=== PATIENT | male | born 1985 | race Caucasian/White ===

== ENCOUNTER 2022-08-05 11:59 | Day surgery (SDC) | payer OTHER ==
[2022-08-05 12:23] LABS: BASOPHILS % (AUTO) 0.1 %; EOSINOPHILS # (AUTO) 0.1 10^3/uL (0.0-0.7); HCT - HEMATOCRIT 47.6 % (42.0-52.0); HGB - HEMOGLOBIN 15.7 g/dL (14.0-18.0); LYMPHOCYTES # (AUTO) 1.3 10^3/uL (1.5-3.5); LYMPHOCYTES % (AUTO) 12.9 %; MEAN CORPUSCULAR VOLUME 90.8 fL (80.0-94.0); MEAN PLATELET VOLUME 9.7 fL (7.4-11.4); MONOCYTES # (AUTO) 0.5 10^3/uL (0.0-1.0); MONOCYTES % (AUTO) 5.4 %; NEUTROPHILS # (AUTO) 8.1 10^3/uL (1.5-6.6); NEUTROPHILS % (AUTO) 80.2 %; PLT - PLATELET COUNT 210 10^3/uL (130-450); RED BLOOD COUNT 5.24 10^6/uL (4.70-6.10); RED CELL DISTRIBUTION WIDTH 12.5 % (12.0-15.0); WHITE BLOOD COUNT 10.1 x10^3/uL (4.8-10.8)
--- NOTE | 2022-08-05 12:35 | ED Physician Documentation ---
History of Present Illness - Stated complaint Stated Complaint: LOWER ABD PX - Chief complaint Chief Complaint: Abd Pain - Additonal information Additional information: 37-year-old male presents emergency department for evaluation of acute right lower quadrant abdominal pain. Reports he woke up yesterday morning and felt that his entire abdomen was painful but over the course the morning it settled within his right lower quadrant. No fevers or vomiting but he has had some nausea. He is denying any urinary symptoms or hematuria. No history of similar. This patient does report that he has chronic lower scrotal and testicular pain. 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 He has no pertinent past abdominal surgical history. Takes no prescribed medications. He last ate about 1 hour ago around 11 am and it included granola, mac & cheese and grapes. Review of Systems Constitutional: denies: Fever, Chills Cardiac: reports: Reviewed and negative Respiratory: reports: Reviewed and negative GI: reports: Abdominal Pain. denies: Nausea, Vomiting : reports: Reviewed and negative Skin: reports: Reviewed and negative PD PAST MEDICAL HISTORY - Past Surgical History Past Surgical History: No - Present Medications Home Medications: Ambulatory Orders Medication Instructions Recorded Confirmed No Known Home Medications 05/13/16 08/05/22 - Allergies Allergies/Adverse Reactions: Allergies Allergy/AdvReac Type Severity Reaction Status Date / Time No Known Drug Allergies Allergy Verified 08/05/22 12:08 - Social History Does the pt smoke?: No Smoking Status: Never smoker - Immunizations Immunizations are current?: Yes PD ED PE NORMAL - General General: Alert and oriented X 3, Well developed/nourished - HEENT HEENT: Atraumatic, Moist mucous membranes - Neck Neck: Supple, no meningeal sign, No adenopathy - Cardiac Cardiac: RRR, No murmur - Respiratory Respiratory: No respiratory distress, Clear bilaterally - Abdomen Abdomen: Normal bowel sounds, Soft. No: Non tender (Focal tenderness right lower quadrant. Equivocal McBurney's) - Back Back: No CVA TTP, No spinal TTP - Derm Derm: Normal color, Warm and dry - Neuro Neuro: Alert and oriented X 3 Eye Opening: Spontaneous Motor: Obeys Commands Verbal: Oriented GCS Score: 15 Results - Vitals Vitals: Vital Signs - 24 hr 08/05/22 08/05/22 12:05 12:08 Temperature 37.1 C 37.1 C Heart Rate 83 83 Respiratory 14 14 Rate Blood Pressure 149/83 H 149/83 H O2 Saturation 99 99 Oxygen O2 Source Room air - Labs Labs: Laboratory Tests 08/05/22 08/05/22 08/05/22 12:17 12:17 12:18 WBC 10.1 RBC 5.24 Hgb 15.7 Hct 47.6 MCV 90.8 MCH 30.0 MCHC 33.0 RDW 12.5 Plt Count 210 MPV 9.7 Neut # (Auto) 8.1 H Lymph # (Auto) 1.3 L [place] # (Auto) 0.5 Eos # (Auto) 0.1 Baso # (Auto) 0.0 Absolute Nucleated RBC 0.00 Nucleated RBC % 0.0 Sodium 138 Potassium 4.1 Chloride 98 L Carbon Dioxide 26 Anion Gap 14.0 H BUN 11 Creatinine 0.8 Estimated GFR (MDRD) 110 Glucose 114 H Calcium 9.8 Total Bilirubin 2.5 H AST 19 ALT 26 Alkaline Phosphatase 42 Total Protein 7.7 Albumin 4.4 Globulin 3.3 Albumin/Globulin Ratio 1.3 Lipase 33 Urine Color YELLOW Urine Clarity CLEAR Urine pH 7.5 Ur Specific [place] 1.015 Urine Protein NEGATIVE Urine Glucose (UA) NEGATIVE Urine Ketones NEGATIVE Urine Occult Blood NEGATIVE Urine Nitrite NEGATIVE Urine Bilirubin NEGATIVE Urine Urobilinogen 0.2 (NORMAL) Ur Leukocyte Esterase NEGATIVE Ur Microscopic Review NOT INDICATED Urine Culture Comments NOT INDICATED - Rads (name of study) CT abd w Radiology: Final report received (9 mm appendicitis with surrounding inflammation with no evidence of perforation or abscess) PD Medical Decision Making - ED course Complexity details: reviewed results, re-evaluated patient, considered differential, d/w patient, d/w cardiology clinical consultant ED course: 37-year-old male presents emergency department for evaluation of 2 days right lower quadrant abdominal pain. No fevers or vomiting. Seen at a local walk-in clinic and advised to come to the ER. Here in the emergency department he does have an equivocal McBurney's on exam. I did obtain a CBC and electrolytes and per my interpretation no acute worrisome findings. Specifically no leukocytosis. He does have an elevated total bilirubin but no pain in the right upper quadrant. Given location of the pain the differential included ureter/renal colic, acute appendicitis and bowel obstruction. CT scan was completed and it does show a 9 mm appendicitis with surrounding inflammation but no evidence of perforation or abscess. I did speak with Dr. Sanchez at just after 2 PM and notified her of the positive CT results. She was told that patient last ate around 11 AM. I had initially ordered Zosyn but she stated that she would give antibiotics just prior to him going into surgery instead. IV fluids have been ordered. COVID-19 is pending. I have discussed the CT imaging findings with the patient and notified him of the plan to proceed with surgery. He is in agreement. At this time he remains clinically stable. Planned operative procedure likely later this evening after the 5:00 hour. further care will be dictated by the team at that time Departure - Departure Disposition: ED Transfer to [facility] Clinical Impression: Appendicitis Qualifiers: Appendicitis type: acute appendicitis Acute appendicitis type: with localized peritonitis Appendicitis gangrene presence: unspecified whether gangrene present Appendicitis perforation presence: without perforation Appendicitis abscess presence: without abscess Qualified Code(s): K35.30 - Acute appendicitis with localized peritonitis, without perforation or gangrene
[2022-08-05 12:37] LABS: ALBUMIN 4.4 g/dL (3.2-5.5); ALBUMIN/GLOBULIN RATIO 1.3 (1.0-2.2); BILIRUBIN,TOTAL 2.5 mg/dL (0.2-1.0); CALCIUM 9.8 mg/dL (8.5-10.3); CREATININE 0.8 mg/dL (0.6-1.2); POTASSIUM 4.1 mmol/L (3.5-5.0); TOTAL PROTEIN 7.7 g/dL (6.7-8.2)
[2022-08-05] MEDS ORDERED: iohexoL-300 100 ML VIAL ONE (12:53)
[2022-08-05 13:03] LABS: BILIRUBIN,URINE NEGATIVE (NEGATIVE); GLUCOSE, URINE (UA) NEGATIVE (NEGATIVE); KETONES,URINE (UA) NEGATIVE (NEGATIVE); LEUKOCYTE ESTERASE, URINE NEGATIVE (NEGATIVE); NITRITE,URINE NEGATIVE (NEGATIVE); OCCULT BLOOD,URINE NEGATIVE (NEGATIVE); PH,URINE 7.5 PH (5.0-7.5); PROTEIN,URINE NEGATIVE (NEGATIVE); UROBILINOGEN,URINE 0.2 (NORMAL) E.U./dL (NORMAL)
[2022-08-05 13:06] LABS: CLARITY,URINE CLEAR (CLEAR)
[2022-08-05] MEDS ORDERED: iohexoL-300 100 ML VIAL IVP ONE (13:19)
[2022-08-05] MEDS ORDERED: PIPERACILLIN/TAZOBACTAM 3.375 GM in SODIUM CHLORIDE 0.9% MINIBAG 100 ML IV STA (14:06)
[2022-08-05] MEDS ORDERED: SODIUM CHLORIDE 0.9% 1,000 ML IV STA (14:07)
--- NOTE | 2022-08-05 14:08 | CT Report ---
PROCEDURE: ABDOMEN/PELVIS W INDICATIONS: focal RLQ abd pain CONTRAST: 100ml Omnipaque 300 TECHNIQUE: After the administration of contrast, 5 mm thick sections acquired from the diaphragms to the sym physis. 5 mm thick coronal and sagittal reformats were acquired. For radiation dose reduction, the following was used: automated exposure control, adjustment of mA and/or kV according to patient size . COMPARISON: None. FINDINGS: Image quality: Excellent. ABDOMEN: Lung bases: Lung bases are clear. Heart size is normal. Solid organs: Liver and spleen are normal in size and enhancement. Gallbladder is normal. Biliary system is non dilated. Pancreas enhances normally. No adrenal nodules. Kidneys demonstrate normal size and enhancement, without hydronephrosis. Peritoneum and bowel: Bowel loops demonstrate normal wall thickness and caliber. No free fluid or a ir. The appendix measures 9 mm with surrounding inflammation consistent with Nodes and vessels: No retroperitoneal or mesenteric adenopathy by size criteria. Aorta and inferior vena cava are normal in size. Miscellaneous: No ventral hernias. PELVIS: Genitourinary: Bladder wall thickness is normal. Miscellaneous: No inguinal hernias or adenopathy. Bones: No suspicious bony lesions. No vertebral body compression fractures. IMPRESSION: 9 mm appendicitis with surrounding inflammation with no evidence of perforation or absce ss. Reviewed by: Mickey Clemons on 08/05/2022 2:07 PM PST Approved by: Mickey Clemons on 08/05/2022 2:07 PM PST Station ID: [id number]
[2022-08-05] MEDS ORDERED: LIDOCAINE MPF 2%-EPI 1:200000 20 ML VIAL ONE (15:32)
[2022-08-05] MEDS ORDERED: BUPIVACAINE 0.25% PF 30 ML VIAL ONE (15:32)
[2022-08-05] MEDS ORDERED: MORPHINE 2 MG/ML CARPUJECT IVP PRN ×2 (16:29→17:27)
[2022-08-05] MEDS ORDERED: ACETAMINOPHEN 325 MG TABLET PO STA (16:29)
[2022-08-05] MEDS ORDERED: ONDANSETRON 4 MG/2 ML VIAL IVP PRN ×3 (16:29→18:17)
[2022-08-05] MEDS ORDERED: CELECOXIB 100 MG CAPSULE PO SCH (16:33)
[2022-08-05] MEDS ORDERED: SUCCINYLCHOLINE 200 MG/10 ML VIAL ONE (16:34)
[2022-08-05] MEDS ORDERED: fentaNYL 100 MCG/2 ML VIAL ONE ×2 (16:35→17:19)
[2022-08-05] MEDS ORDERED: ROCURONIUM 50 MG/5 ML VIAL ONE (16:35)
[2022-08-05] MEDS ORDERED: PROPOFOL 200 MG/20 ML VIAL IVP ONE (16:35)
[2022-08-05] MEDS ORDERED: MIDAZOLAM 2 MG/2 ML VIAL ONE (16:35)
--- NOTE | 2022-08-05 16:37 | SURGERY HX AND PHYSICAL(T) ---
Surgical History & Physical - Chief Complaint/HPI Chief Complaint: abdominal pain History of Present Illness: This is a very pleasant 37-year-old gentleman who presents with acute onset abdominal pain. He first noted the pain yesterday morning, and at that time it was diffuse in nature and uncomfortable. Throughout the day, it migrated to the patient's right lower quadrant and became more intense. He endorses some associated nausea but denies vomiting, constipation, or diarrhea. He had a normal bowel movement yesterday. He denies any urinary symptoms or history of similar pain in the past. Last p.o. intake was a meal at around 11 AM today.. - PMH/PSH/Social Hx Does the pt have a hx of MRSA?: No Smoking Status: Never smoker - Family Hx Family Hx: Unremarkable - Home Meds and Allergies Allergies/Adverse Reactions: Allergies Allergy/AdvReac Type Severity Reaction Status Date / Time No Known Drug Allergies Allergy Verified 08/05/22 12:08 - Review of Systems Constitutional: Other (A complete 10 point review of symptoms is otherwise negative except for that noted in HPI and PMH.) - Vital Signs Heart Rate: 71 Blood Pressure: 138/88 Temperature: 37.1 C Respiratory Rate: 17 O2 Saturation: 98 Weight (kg): 99.79 kg Height: 1.73 m - Physical Exam General Appearance: positive: No acute distress, Alert Eyes Bilatera: positive: Normal inspection, PERRL, EOMI ENT: positive: ENT inspection nml, No signs of dehydration Neck: positive: Trachea midline Respiratory: positive: Chest non-tender, No respiratory distress Cardiovascular: positive: Regular rate & rhythm Peripheral Pulses: positive: 2+ Abdomen: positive: No distention, Tenderness (Right lower quadrant). negative: Guarding, Rebound Back: positive: Nml inspection Skin: positive: Color nml, Skin rash Extremities: positive: Non-tender, Full ROM Neurologic/Psychiatric: positive: Oriented x3 - Patient Review Patient Review: Problems were reviewed with the patient during this visit. Med ications were reviewed with the patient during this visit. Allergies were reviewed this patient during this visit. Pertinent Tests Reviewed: All pertitent test for this patient were reviewed. - Assessment & Plan Assessment and Plan: This is a 37-year-old gentleman with: 1. Acute appendicitis The patient's history, laboratory studies, physical exam, and imaging are consistent with this diagnosis. -I personally reviewed the images and report from the patient's CT scan of the abdomen and pelvis from today. It is consistent with acute appendicitis. There are no signs of perforation. -I discussed the natural history of appendicitis with the patient. We also discussed the risks, benefits, and alternatives of laparoscopic appendectomy, including the alternative of managing appendicitis with antibiotics alone. We discussed surgical risks including bleeding, infection, and damage to surrounding structures. We also discussed the intraoperative and postoperative plan including the possible need for drain placement and possibility of abscess formation after the procedure which is due to the disease process, not necessarily a complication of the surgery. The patient voiced understanding, his questions were answered, and he wished to proceed with surgery at this time. A consent was signed with the patient in the emergency department. - Patient will remain NPO for a total of 6 hours before surgery -ERAS medications and preoperative antibiotics have been ordered -I anticipate likely discharge this evening. -He will need to follow-up with me in clinic in 2 weeks.
[2022-08-05] MEDS ORDERED: metroNIDAZOLE 500 MG/100 ML 500 MG/100 ML BAG IV SCH (17:00)
[2022-08-05] MEDS ORDERED: acetaZOLAMIDE 250 MG TABLET PO SCH (17:00)
[2022-08-05] MEDS ORDERED: SODIUM CHLORIDE 0.9% 1,000 ML IV SCH (17:00)
[2022-08-05] MEDS ORDERED: ceFAZolin 1 GM VIAL IVP SCH (17:00)
[2022-08-05] MEDS ORDERED: DEXAMETHASONE 4 MG/ML VIAL ONE (17:07)
[2022-08-05] MEDS ORDERED: ONDANSETRON 4 MG/2 ML VIAL ONE (17:07)
[2022-08-05] MEDS ORDERED: CEFAZOLIN 2G/50ML 0.9% NS 2 GM/50 ML BAG IV ONE (17:08)
[2022-08-05] MEDS ORDERED: LIDOCAINE MPF 2%-EPI 1:200000 20 ML VIAL SUBQ ONE (17:22)
[2022-08-05] MEDS ORDERED: BUPIVACAINE 0.25% PF 30 ML VIAL SUBQ ONE (17:22)
[2022-08-05] MEDS ORDERED: fentaNYL 100 MCG/2 ML VIAL IVP PRN (17:27)
[2022-08-05] MEDS ORDERED: ATROPINE ABBOJECT 1 MG/10 ML SYRINGE IVP PRN (17:27)
[2022-08-05] MEDS ORDERED: NALOXONE 0.4 MG/ML VIAL IVP PRN (17:27)
[2022-08-05] MEDS ORDERED: HYDROmorphone 0.5 MG/0.5 ML SYRINGE IVP PRN ×2 (17:27→18:17)
--- NOTE | 2022-08-05 17:27 | ANESTHESIA ---
Pre-Anesthesia VS, & Labs - Diagnosis Acute appendicitis - Procedure lap appy Vital Signs: Temp Pulse Resp BP Pulse Ox O2 Flow Rate 37.1 C 71 17 138/88 H 98 08/05/22 16:45 08/05/22 16:45 08/05/22 16:45 08/05/22 16:45 08/05/22 16:45 Height: 5 ft 8 in Weight (kg): 99.79 kg Body Mass Index: 33.4 BMI Classification: Obese - NPO Other (mac and cheese at 11am) - Lab Results Current Lab Results: Laboratory Tests 08/05/22 12:17: Sodium 138, Potassium 4.1, Chloride 98 L, Carbon Dioxide 26, Anion Gap 14.0 H, BUN 11, Creatinine 0.8, Estimated GFR (MDRD) 110, Glucose 114 H, Calcium 9.8, Total Bilirubin 2.5 H, AST 19, ALT 26, Alkaline Phosphatase 42, Total Protein 7.7, Albumin 4.4, Globulin 3.3, Albumin/Globulin Ratio 1.3, Lipase 33 08/05/22 12:17: WBC 10.1, RBC 5.24, Hgb 15.7, Hct 47.6, MCV 90.8, MCH 30.0, MCHC 33.0, RDW 12.5, Plt Count 210, MPV 9.7, Neut # (Auto) 8.1 H, Lymph # (Auto) 1.3 L, [place] # (Auto) 0.5, Eos # (Auto) 0.1, Baso # (Auto) 0.0, Absolute Nucleated RBC 0.00, Nucleated RBC % 0.0 Lab results reviewed: Yes Fish Bones: 08/05/22 12:17 08/05/22 12:17 Home Medications and Allergies Active Medications Acetaminophen (Acetaminophen 325 Mg Tablet) 1,000 mg PO ONCE STA Stop: 08/05/22 16:30 Acetazolamide (Acetazolamide 250 Mg Tablet) 250 mg PO ONCE JOANNE Cefazolin Sodium (Cefazolin 1 Gm Vial) 2 gm IVP ONCE JOANNE Celecoxib (Celecoxib 100 Mg Capsule) 200 mg PO ONCE JOANNE Sodium Chloride (Normal Saline 0.9%) 1,000 mls @ 125 mls/hr IV .Q8H JOANNE Metronidazole (Flagyl 500 Mg/100 Ml) 500 mg in 100 mls @ 100 mls/hr IV ONCE JOANNE Morphine Sulfate (Morphine 2 Mg/Ml Carpuject) 4 mg IVP Q2HR PRN PRN Reason: PAIN Ondansetron HCl (Ondansetron 4 Mg/2 Ml Vial) 4 mg IVP Q6HR PRN PRN Reason: Nausea / Vomiting Allergies/Adverse Reactions: Allergies Allergy/AdvReac Type Severity Reaction Status Date / Time No Known Drug Allergies Allergy Verified 08/05/22 12:08 Anes History & Medical History - Anesthetic History Anesthesia Complications: reports: No previous complications - Medical History Cardiovascular: reports: None Pulmonary: reports: None Gastrointestinal: reports: GERD (1-2 times per week. usually diet related) Urinary: reports: None Neuro: reports: None Musculoskeletal: reports: None Endocrine/Autoimmune: reports: None Blood Disorders: reports: None Skin: reports: None Smoking Status: Never smoker Psychosocial: reports: Alcohol (2-3 whiskey drinks per day) History of Cancer?: No - Surgical History Orthopedic: reports: ACL reconstruction (bilateral) Exam General: Alert, Oriented x3, Cooperative, No acute distress Dental: WNL Mouth Openin Fingerbreadth Neck Mobility: Normal Mallampati classification: I Thyromental Distance: 4-6 cm Mental/Cognitive Status: Alert/Oriented X3, Normal for patient Plan Anesthesia Type: General Consent for Procedure(s) Verified and Reviewed: Yes Code Status: Attempt Resuscitation ASA classification: 2-Mild systemic disease Is this case an emergency?: Yes
[2022-08-05] MEDS ORDERED: HYDROmorphone 1 MG/ML CARPUJECT ONE (17:56)
[2022-08-05] MEDS ORDERED: KETOROLAC 30 MG/ML VIAL ONE (17:57)
[2022-08-05] MEDS ORDERED: ACETAMINOPHEN 1,000 MG/100 ML 1,000 MG/100 ML BAG IV ONE (17:58)
[2022-08-05] MEDS ORDERED: LACTATED RINGERS 1,000 ML IV SCH (18:00)
--- NOTE | 2022-08-05 18:12 | OPERATIVE REPORT ---
Operative Report - General Procedure Date: 08/05/22 Planned Procedure: Laparoscopic appendectomy Pre-Op Diagnosis: Acute appendicitis Procedure Performed: Laparoscopic appendectomy Post Op Diagnosis: Acute appendicitis, Nonperforated - Procedure Note Primary Surgeon: Dr. America Woo Anesthesia Provider: Celeste Sage CRNA Anesthesia Technique: General ET tube, Local Pathology: Appendix and contents Estimated Blood Loss (mL): 20 Urine Output (mL): 225 Indications: Patient presented with abdominal pain of 36 hours duration. Pain was initially diffuse and migrated to the patient's right lower quadrant. His CT scan, physical exam, laboratory studies, and history are consistent with acute appendicitis. Preoperatively I discussed the natural history of appendicitis as well as options including antibiotics alone and surgery. We discussed the risks, benefits, and alternatives of laparoscopic appendectomy including bleeding, infection, and damage to surrounding structures. The patient voiced understanding, his questions were answered, and he wished to proceed with surgery. Consent was signed by the patient in the emergency department prior to surgery. Findings: 1. Acute, nonperforated appendicitis Complications: None - Other Other Information/Narrative: The patient was brought to the operative suite and placed in the supine position. General endotrachealanesthesia was induced. A Mortensen catheter was placed. Preoperative antibiotics were given. A preop surgical timeout was performed. Local anesthetic was injected into the skin and subcutaneous tissues just superior to the umbilicus. An 11 blade scalpel was used to make a 5 mm transverse skin incision in this location. Next, a hemostat was used to spread the tissues down to the level of the fascia and a Eric clamp was used to grasp and elevate the umbilical stalk. A Varess needle was used to gain access to the peritoneal space. Low flow insufflation revealed low pressures and then high flow insufflation was undertaken to 15 mmHg. Next, the Varess needle was removed and a 5 mm laparoscopic port was inserted in this location. Through this port, a 5 mm 30 degree laparoscope was inserted. On inspection of the abdomen no injury was caused on entry. Next, the patient was placed in Trendelenburg and rotated slightly to the left. 2 more ports were inserted. A 5 mm port was inserted in the suprapubic region, and a 12 mm port was inserted in the left lower quadrant. Both ports were placed by first anesthetizing the skin and subcutaneous tissues with local anesthetic, then by making an appropriate length incision with an 11 blade scalpel, and finally by placing the port under direct laparoscopic vision. Once the ports were in place, 2 atraumatic graspers were used to identify the area of concern. The appendix and cecum were densely adherent to the right abdominal sidewall. There was marked inflammation. Blunt and sharp dissection with laparoscopic scissors was used to follow the peritoneal reflection and free the appendix and cecum enough to perform an appendectomy safely. Great care was taken only to cut through those tissues that I could easily see through. A window was made in the mesoappendix at the base of the appendix using a [place] grasper. Then, the base of the appendix was divided with a laparoscopic 45 mm stapler, using a blue load.Great care was taken to ensure that only the base of the appendix was within the jaws of the stapler and then it was fired. Next, a white load was used to come across the mesoappendix. The staple lines were inspected and noted to be hemostatic. Next, the appendix was placed in an Endo Catch bag and removed through the left lower quadrant port. The left lower quadrant port was then reinserted. Again, the staple lines were inspected and noted to be hemostatic. A small amount of fluid was suctioned from the right paracolic gutter. There was no sign of perforation or purulent fluid within the abdomen. Next, a laparoscopic fascial closure device was used to place a single, interrupted 0 Vicryl suture at the left lower quadrant port. This reapproximated the fascia well. The remaining ports were removed under direct laparoscopic vision and the abdomen was deflated. Next, the skin edges were reapproximated with 4-0 Monocryl in an interrupted subcuticular fashion. A sterile dressing of skin glue was placed. The Mortensen catheter was removed at the end of the case. The patient was extubated in the operating room and transferred to the recovery room in stable condition. There were no complications.
[2022-08-05] MEDS ORDERED: LACTATED RINGERS 1,000 ML IV ONE (18:16)
[2022-08-05] MEDS ORDERED: HYDROcod/ACETAM 5/325 MG TABLET PO PRN (18:17)
[2022-08-05] MEDS ORDERED: oxyCODONE/ACET 5/325 Prepack 4 PO STA (18:21)
--- NOTE | 2022-08-05 18:32 | ANESTHESIA POST OP EVALUATION ---
Anesthesia Post Eval - Post Anesthesia Eval Vitals: Last Vital Signs Temp 37.5 C 08/05/22 18:27 Pulse 81 08/05/22 18:27 Resp 20 08/05/22 18:27 BP 120/84 H 08/05/22 18:27 Pulse Ox 100 08/05/22 18:27 O2 Flow Rate CV Function Including HR & BP: Stable Pain Control: Satisfactory Nausea & Vomiting: Negative Mental Status: Baseline Respiratory Status: Airway Patent Hydration Status: Satisfactory Anesthesia Complications: None
[2022-08-05 20:40] VITALS: BP 146/92
== END 2022-08-05 20:45 | disposition home or self-care (01) ==
LOC: ED 11:59 → SDS 16:15 → ICU 19:05 → SDS 20:45
PROVIDERS: ATTEND Surgery
PROC: 0DTJ4ZZ Resection of Appendix, Percutaneous Endoscopic Approach (ICD-10-PCS; principal; 2022-08-05 17:00)
DX: K35.30 Acute appendicitis with localized peritonitis, without perforation or gangrene (principal); Z20.822 Contact with and (suspected) exposure to COVID-19; E66.9 Obesity, unspecified; Z68.33 Body mass index [BMI] 33.0-33.9, adult
CPT/HCPCS: 36415; 44970; 74177; 80053; 81003; 83690; 85025; 87635; 96360; 99284; 99285; J0131; J0330; J0690; J1170; J7120; Q9967; 81001; 87086